=== PATIENT | male | born 1935 | race Caucasian/White ===

== ENCOUNTER → 2016-11-17 | Outpatient (CLI) | payer MEDICARE ==
[~2016-11-17] MED LIST: ASPI1TAB69 PO; BIOT10TA PO; CENTTAB PO; FLAX10006 PO; PRESCAP5 PO; TRAV0.00 EACH EYE; VITA100018 PO
[2016-11-17 08:51] LABS: HEMATOCRIT 39.3 % (39.0-51.0); MEAN CELL VOLUME 90.8 FL (80.0-100.0); MEAN CORPUSCULAR HEMOGLOBIN 30.7 PG (27.0-34.0); MEAN CORPUSCULAR HGB CONC 33.9 % (32.0-36.0); PLATELET COUNT 246 TH/MM3 (150-450); RED BLOOD COUNT 4.32 MIL/MM3 (4.50-5.90); RED CELL DISTRIBUTION WIDTH 13.9 % (11.6-17.2); REVIEW FLAG FINAL; WHITE BLOOD COUNT 7.6 TH/MM3 (4.0-11.0)
[2016-11-17 09:23] LABS: ALKALINE PHOSPHATASE 73 U/L (45-117); ALT (GPT) 32 U/L (12-78); ANION GAP 7 MEQ/L (5-15); AST (GOT) 22 U/L (15-37); BICARBONATE 27.7 MEQ/L (21.0-32.0); BLOOD UREA NITROGEN 15 MG/DL (7-18); CHLORIDE 106 MEQ/L (98-107); GLOMERULAR FILTRATION RATE 65 ML/MIN (>89); GLUCOSE,FASTING 92 MG/DL (74-99); HDL CHOLESTEROL 46.4 MG/DL (40.0-60.0); LDL CHOLESTEROL 74 MG/DL (0-99); POTASSIUM 4.2 MEQ/L (3.5-5.1); SODIUM (NA) 141 MEQ/L (136-145); TOTAL BILIRUBIN ADULT 0.5 MG/DL (0.2-1.0)
== END ==
LOC: CLAB 08:14
PROVIDERS: ATTEND Family Medicine
DX: L93.0 Discoid lupus erythematosus (principal); E78.5 Hyperlipidemia, unspecified; C61 Malignant neoplasm of prostate
CPT/HCPCS: 36415; 80053; 80061; 84443; 85027

== ENCOUNTER 2017-01-16 14:07 | Emergency (ER) | payer MEDICARE ==
[2017-01-16 14:09] VITALS: BP 116/64; PULSE 107; RESP 18; TEMP 97.8; O2SAT 96
--- NOTE | 2017-01-16 14:39 | PD ---
HPI Chief Complaint: Musculoskeletal Complaint Time Seen by Provider: 14:28 Travel History International Travel<30 days: No Contact w/Intl Traveler<30days: No Traveled to known affect area: No History of Present Illness HPI 81 YO M with PMH of sasha Holguin presents to the ED for evaluation of 2 days history of right foot pain. The patient states that he awoke in the middle of the night 2 nights ago with a "terrible" cramp in the right foot. He states that he was able to work the cramp out by standing on the leg. He denies numbness, tingling, weakness, limitations to ROM, or known injury. He treated today with 2 Tylenol with only mild improvement of symptoms. PFSH Past Medical History Hx Anticoagulant Therapy: Yes (ELOQUIS) Cancer: No Cardiovascular Problems: Yes (A-FIB) Diabetes: No Hiatal Hernia: No Hypertension: No Thyroid Disease: No Past Surgical History Eye Surgery: Yes (left eye cataract removed) Genitourinary Surgery: Yes (TURP) Pacemaker: No Social History Alcohol Use: Yes (beer daily) Tobacco Use: No Allergies-Medications (Allergen,Severity, Reaction): Coded Allergies: Latex (Verified Allergy, Unknown, 01/16/17) causes hives Reported Meds & Prescriptions Reported Meds & Active Scripts Active Travatan Z Opth Drops (Travoprost) 0.004 % Soln 1 Drop EACH EYE HS Reported Travatan Z Opth Drops (Travoprost) 0.004 % Soln 1 Drop EACH EYE HS Preservision Areds 2 (Multiple Vitamins W/ Minerals) 1 Cap 1 Cap PO DAILY Centrum Silver (Multiple Vitamins W/ Minerals) 1 Tab 1 Tab PO DAILY Flaxseed Oil (Flaxseed (Linseed)) 1,000 Mg Cap 1,000 Mg PO DAILY Vitamin D3 (Cholecalciferol) 1,000 Unit Tab 1,000 Units PO DAILY Biotin 10 Mg Tab 1,000 Mcg PO DAILY Aspirin 81 Mg Tabdr 81 Mg PO DAILY Review of Systems Except as stated in HPI: all other systems reviewed are Neg Physical Exam Narrative GENERAL: Well-nourished, well-developed elderly white male in NAD. SKIN: Focused skin assessment warm/dry. HEAD: Normocephalic. EYES: No scleral icterus. No injection or drainage. NECK: Supple, trachea midline. No JVD or lymphadenopathy. CARDIOVASCULAR: Regular rate and rhythm without murmurs, gallops, or rubs. RESPIRATORY: Breath sounds equal bilaterally. No accessory muscle use. GASTROINTESTINAL: Abdomen soft, non-tender, nondistended. MUSCULOSKELETAL: No cyanosis, or edema. Hohmann sign negative on the right. Ambulatory with a walker. FOCUSED RIGHT LOWER EXTREMITY EXAM: 2+ DP pulse. Mild TTP of the dorsal aspect of the right forefoot. No limitation to ROM of the toes or ankle. Sensation intact to light touch distally. Cap refill less than 2 seconds. BACK: Nontender without obvious deformity. No CVA tenderness. Data Data Last Documented VS Vital Signs Date Time Temp Pulse Resp B/P Pulse Ox O2 Delivery O2 Flow Rate FiO2 01/16/17 14:09 97.8 107 18 116/64 96 Orders Foot, Complete ([id number]) (01/16/17 14:27) [facility] Medical Decision Making Medical Screen Exam Complete: Yes Emergency Medical Condition: Yes Differential Diagnosis muscle spasm versus muscle strain versus musculoskeletal pain versus retained FB versus fracture versus dislocation versus OA versus other Narrative Course 81 YO M with PMH of sasha Holguin presents to the ED for evaluation of 2 days history of right foot pain. The patient states that he awoke in the middle of the night 2 nights ago with a "terrible" cramp in the right foot. He states that he was able to work the cramp out by standing on the leg. He denies numbness, tingling, weakness, limitations to ROM, or known injury. He treated today with 2 Tylenol with only mild improvement of symptoms. Vitals reviewed. Physical exam reveals an elderly white male in NAD. Hohmann sign negative on the right. Ambulatory with a walker. FOCUSED RIGHT LOWER EXTREMITY EXAM: 2+ DP pulse. Mild TTP of the dorsal aspect of the right forefoot. No limitation to ROM of the toes or ankle. Sensation intact to light touch distally. Cap refill less than 2 seconds. Xray reveals no bony injury. This is musculoskeletal pain. Patient was instructed to rest, ice, elevate the extremity. Pain medications options limited 2/2 Eliquis, narcotics aren't indicated. Patient was instructed to continue with Tylenol as directed on the package, follow with the PCP or a silverware etcher. He indicated understanding of the instructions and is agreeable to the care plan. He is stable and discharged home. Diagnosis Primary Impression: Right foot pain Referrals: [facility] Patient Instructions: General Instructions, Musculoskeletal Pain (ED) Additional Instructions: Rest, ice, elevate the extremity. Apply ice no longer than 10-15 minutes per hour a few times a day. Tylenol as directed on the label, as needed for pain. Return to normal, gentle activity as tolerated. Follow up with silverware etcher or your primary care provider. Return to the ED for any urgent or emergent medical condition. Disposition: 01 DISCHARGE HOME Condition: Stable Soila Rose Jan 16, 2017 14:39
--- NOTE | 2017-01-16 15:24 | RADRPT ---
EXAM DATE/TIME: 01/16/2017 14:48 [place] COMPARISON: No previous studies available for comparison. INDICATIONS : Right foot pain after foot cramps for two days. MEDICAL HISTORY : None. SURGICAL HISTORY : None. ENCOUNTER: Initial ACUITY: 2 days PAIN SCORE: 5/10 LOCATION: Right foot. FINDINGS: There is no acute fracture or dislocation of the right foot. Tiny plantar calcaneal spur is noted. CONCLUSION: 1. No acute fracture or dislocation. 2. Tiny plantar calcaneal spur. Kwame Yu MD on January 16, 2017 at 15:18 Board Certified Radiologist. This report was verified electronically.
== END 2017-01-16 15:40 | disposition home or self-care (01) ==
LOC: NEPD 14:07
DX: M79.671 Pain in right foot (principal); I48.91 Unspecified atrial fibrillation; R25.2 Cramp and spasm; Z79.01 Long term (current) use of anticoagulants
CPT/HCPCS: 73630; 99283

== ENCOUNTER → 2017-01-21 | Outpatient (CLI) | payer MEDICARE ==
[2017-01-21 10:55] LABS: BASOPHIL % 0.6 % (0.0-2.0); EOSINOPHIL # 0.1 TH/MM3 (0-0.4); EOSINOPHIL % 0.7 % (0.0-4.0); HEMATOCRIT 37.4 % (39.0-51.0); HEMO FLAGS DIFF FINAL; LYMPH % 5.8 % (9.0-44.0); LYMPHOCYTE # 0.5 TH/MM3 (1.0-4.8); MEAN CELL VOLUME 89.8 FL (80.0-100.0); MEAN CORPUSCULAR HEMOGLOBIN 30.3 PG (27.0-34.0); MEAN CORPUSCULAR HGB CONC 33.7 % (32.0-36.0); MONO % 9.6 % (0.0-8.0); NEUT % 83.3 % (16.0-70.0); PLATELET COUNT 267 TH/MM3 (150-450); RED BLOOD COUNT 4.17 MIL/MM3 (4.50-5.90); RED CELL DISTRIBUTION WIDTH 14.1 % (11.6-17.2); WHITE BLOOD COUNT 8.4 TH/MM3 (4.0-11.0)
[2017-01-21 11:22] LABS: WESTERGREN SEDIMENTATION RATE 70 mm/hr (0-20)
== END ==
LOC: CLAB 10:22
DX: M10.9 Gout, unspecified (principal); L03.031 Cellulitis of right toe
CPT/HCPCS: 36415; 84550; 85025; 85652

== ENCOUNTER → 2017-01-26 | Outpatient (CLI) | payer MEDICARE ==
[2017-01-26 14:59] LABS: INDIRECT BILIRUBIN 0.4 MG/DL (0.0-0.8); TOTAL BILIRUBIN ADULT 0.6 MG/DL (0.2-1.0)
== END ==
LOC: CLAB 13:28
PROVIDERS: ATTEND Family Medicine
DX: R79.89 Other specified abnormal findings of blood chemistry (principal); R94.5 Abnormal results of liver function studies
CPT/HCPCS: 36415; 80074; 80076

== ENCOUNTER 2017-02-04 09:22 | Observation (INO) | payer MEDICARE ==
[~2017-02-04] VITALS: Ht 160 cm; Wt 66.0 kg
[2017-02-04] VITALS (9 sets, daily range): BP systolic 101–129; BP diastolic 55–96; PULSE 67–108; RESP 16–20; TEMP 97.4–98.7; O2SAT 90–99
[2017-02-04] MEDS ORDERED: SODIUM CHLOR 0.9% 1000 ML INJ 1,000 ML IV ONE ×3 (09:54→13:30)
[2017-02-04] MEDS ORDERED: OCUVTAB4 PO (10:00)
[2017-02-04] MEDS ORDERED: COLC1TAB15 PO (10:00)
[2017-02-04] MEDS ORDERED: FLAX1000 PO (10:00)
[2017-02-04] MEDS ORDERED: SODIUM CHLORIDE 0.9% FLUSH 10 ML FLUSH IVF PRN (10:00)
[2017-02-04] MEDS ORDERED: METO50TA11 PO (10:00)
[2017-02-04] MEDS ORDERED: APIX5TAB PO (10:00)
[2017-02-04] MEDS ORDERED: CENTCHW4 CHEW (10:00)
--- NOTE | 2017-02-04 10:06 | PD ---
HPI . Diarrhea Chief Complaint: GI Complaint Time Seen by Provider: 09:37 Travel History International Travel<30 days: No Contact w/Intl Traveler<30days: No Traveled to known affect area: No History of Present Illness HPI This patient presents along with his with the chief complaint of nausea, vomiting and diarrhea. He reports the onset of his symptoms 3 days ago with diarrhea. He reports too numerous to count episodes of diarrhea that day. He treated it with 2 doses of Imodium. He states that he subsequently had some emesis. The symptoms continued into the next day. However, the next 2 days were okay. Then his symptoms recurred this morning. He called his doctor who instructed him to come to the emergency department for further evaluation and treatment. Patient reports markedly decreased energy and possible fevers. Denies any pain. No other associated symptoms. His symptoms were not relieved by Imodium and he knows of no exacerbating factor. PFSH Past Medical History Hx Anticoagulant Therapy: Yes (Eliquis) Cancer: Yes (prostate ) Cardiovascular Problems: Yes (on Eliquis, A.fib) Chemotherapy: Yes (Radiation with prostate cancer ) Diabetes: No Hiatal Hernia: No Hypertension: Yes Medical other: Yes (lupus ) Thyroid Disease: No ?: Not Past Surgical History Eye Surgery: Yes (both eye cataract removed) Genitourinary Surgery: Yes (TURP) Pacemaker: No Other Surgery: Yes Social History Alcohol Use: Yes (occassionaly ) Tobacco Use: No Substance Use: No Allergies-Medications (Allergen,Severity, Reaction): Coded Allergies: Latex (Verified Allergy, Unknown, 02/04/17) causes hives Reported Meds & Prescriptions Reported Meds & Active Scripts Active Reported Preservision Areds (Multiple Vitamins W/ Minerals) 1 Tab 1 Tab PO DAILY Centrum (Multiple Vitamins W/ Minerals) 1 Chew 1 Tab CHEW DAILY Flaxseed Oil (Flaxseed (Linseed)) 1,000 Mg Cap 1 Cap PO DAILY Colchicine 0.6 Mg Tab 0.6 Mg PO TID Eliquis (Apixaban) 5 Mg Tab 5 Mg PO BID Metoprolol Succinate ER 24 HR (Metoprolol Succinate) 50 Mg Tab 50 Mg PO DAILY Travatan Z Opth Drops (Travoprost) 0.004 % Soln 1 Drop EACH EYE HS Vitamin D3 (Cholecalciferol) 1,000 Unit Tab 1,000 Units PO DAILY Biotin 10 Mg Tab 1,000 Mcg PO DAILY Review of Systems Except as stated in HPI: all other systems reviewed are Neg General / Constitutional: Positive: Fever, Chills Gastrointestinal: Positive: Nausea, Vomiting, Diarrhea, No: Abdominal Pain Genitourinary: No: Urgency, Frequency, Dysuria Physical Exam Narrative Vital Signs Date Time Temp Pulse Resp B/P Pulse Ox O2 Delivery O2 Flow Rate FiO2 02/04/17 09:41 99 20 110/68 99 02/04/17 09:32 98.7 67 16 103/55 95 Room Air 02/04/17 09:25 97.4 87 20 101/64 98 Room Air GENERAL: Elderly man in no acute distress. SKIN: Warm and dry. HEAD: Atraumatic. Normocephalic. EYES: Pupils equal and round. Extraocular movements are intact. ENT: No nasal bleeding or discharge. Mucous membranes pink and moist. NECK: Trachea midline. Neck is supple. CARDIOVASCULAR: Regular rate and rhythm. Heart sounds are normal. RESPIRATORY: No accessory muscle use. Lungs are clear with full air movement throughout. GASTROINTESTINAL: Abdomen soft, non-tender, nondistended. MUSCULOSKELETAL: No obvious deformities. No edema. NEUROLOGICAL: Awake and alert. No obvious cranial nerve deficits. Motor grossly within normal limits. Normal speech. PSYCHIATRIC: Appropriate mood and affect; insight and judgment normal. Data Data Last Documented VS Vital Signs Date Time Temp Pulse Resp B/P Pulse Ox O2 Delivery O2 Flow Rate FiO2 02/04/17 11:58 102 20 124/63 99 Room Air 02/04/17 09:32 98.7 Orders Complete Blood Count With Diff (02/04/17 09:54) Comprehensive Metabolic Panel (02/04/17 09:54) Urinalysis - C+S If Indicated (02/04/17 09:54) Iv Access Insert/Monitor (02/04/17 09:54) Sodium Chlor 0.9% 1000 Ml Inj (Ns 1000 M (02/04/17 09:54) Sodium Chloride 0.9% Flush (Ns Flush) (02/04/17 10:00) Blood Culture (02/04/17 09:54) C Diff Toxin Pcr (02/04/17 09:54) Enteric Path (Stool) (02/04/17 09:54) Sodium Chlor 0.9% 1000 Ml Inj (Ns 1000 M (02/04/17 11:30) Sodium Chlor 0.9% 1000 Ml Inj (Ns 1000 M (02/04/17 13:30) Labs Laboratory Tests Test 02/04/17 02/04/17 10:00 13:10 White Blood Count 8.7 TH/MM3 Red Blood Count 4.25 MIL/MM3 Hemoglobin 12.9 GM/DL Hematocrit 37.5 % Mean Corpuscular Volume 88.2 FL Mean Corpuscular Hemoglobin 30.3 PG Mean Corpuscular Hemoglobin 34.4 % Concent Red Cell Distribution Width 13.7 % Platelet Count 415 TH/MM3 Mean Platelet Volume 7.4 FL Neutrophils (%) (Auto) 84.7 % Lymphocytes (%) (Auto) 4.8 % Monocytes (%) (Auto) 9.0 % Eosinophils (%) (Auto) 1.2 % Basophils (%) (Auto) 0.3 % Neutrophils # (Auto) 7.4 TH/MM3 Lymphocytes # (Auto) 0.4 TH/MM3 Monocytes # (Auto) 0.8 TH/MM3 Eosinophils # (Auto) 0.1 TH/MM3 Basophils # (Auto) 0.0 TH/MM3 CBC Comment DIFF FINAL Differential Comment Sodium Level 135 MEQ/L Potassium Level 4.0 MEQ/L Chloride Level 103 MEQ/L Carbon Dioxide Level 20.2 MEQ/L Anion Gap 12 MEQ/L Blood Urea Nitrogen 21 MG/DL Creatinine 1.10 MG/DL Estimat Glomerular Filtration 64 ML/MIN Rate Random Glucose 91 MG/DL Calcium Level 9.1 MG/DL Total Bilirubin 0.7 MG/DL Aspartate Amino Transf 45 U/L (AST/SGOT) Alanine Aminotransferase 43 U/L (ALT/SGPT) Alkaline Phosphatase 88 U/L Total Protein 7.4 GM/DL Albumin 2.8 GM/DL Urine Color YELLOW Urine Turbidity CLEAR Urine pH 5.5 Urine Specific [place] 1.008 Urine Protein NEG mg/dL Urine Glucose (UA) NEG mg/dL Urine Ketones NEG mg/dL Urine Occult Blood NEG Urine Nitrite NEG Urine Bilirubin NEG Urine Urobilinogen LESS THAN 2.0 MG/DL Urine Leukocyte Esterase NEG Urine WBC LESS THAN 1 /hpf Urine Hyaline Casts 3 /lpf Urine Mucus FEW /lpf Microscopic Urinalysis Comment CULT NOT INDICATED MDM Medical Decision Making Medical Screen Exam Complete: Yes Emergency Medical Condition: Yes Differential Diagnosis Differential diagnosis of diarrhea includes but is not limited to early enteritis, bacterial enteritis, antibiotic induced diarrhea, irritable bowel syndrome Narrative Course This is an elderly patient who presents with mainly diarrhea with some vomiting. His blood pressure is low for him. He will be fluid resuscitated. I have ordered stool for enteric pathogens and C. difficile. Basic labs are pending. CBC & BMP Diagram 02/04/17 10:00 UA neg for infection. Patient reports that he still feels very weak following 2 L of fluid. He has put out very little urine. He will be admitted to observation for hydration. Diagnosis Primary Impression: Diarrhea Qualified Code: R19.7 - Diarrhea, unspecified type Admitting Information Admitting Physician Requests: Observation Patient Instructions: Acute Diarrhea (ED), General Instructions Condition: Stable Gabriela Camara MD Feb 04, 2017 10:06
[2017-02-04 10:30] LABS: AUTOMATED NEUTROPHIL # 7.4 TH/MM3 (1.8-7.7); BASOPHIL % 0.3 % (0.0-2.0); EOSINOPHIL # 0.1 TH/MM3 (0-0.4); EOSINOPHIL % 1.2 % (0.0-4.0); HEMATOCRIT 37.5 % (39.0-51.0); HEMO FLAGS DIFF FINAL; LYMPH % 4.8 % (9.0-44.0); LYMPHOCYTE # 0.4 TH/MM3 (1.0-4.8); MEAN CELL VOLUME 88.2 FL (80.0-100.0); MEAN CORPUSCULAR HEMOGLOBIN 30.3 PG (27.0-34.0); MEAN CORPUSCULAR HGB CONC 34.4 % (32.0-36.0); NEUT % 84.7 % (16.0-70.0); PLATELET COUNT 415 TH/MM3 (150-450); RED BLOOD COUNT 4.25 MIL/MM3 (4.50-5.90); RED CELL DISTRIBUTION WIDTH 13.7 % (11.6-17.2); WHITE BLOOD COUNT 8.7 TH/MM3 (4.0-11.0)
[2017-02-04 10:45] LABS: BLOOD UREA NITROGEN 21 MG/DL (7-18); GLOMERULAR FILTRATION RATE 64 ML/MIN (>89)
[2017-02-04 10:46] LABS: ALT (GPT) 43 U/L (12-78); ANION GAP 12 MEQ/L (5-15); AST (GOT) 45 U/L (15-37); BICARBONATE 20.2 MEQ/L (21.0-32.0); CHLORIDE 103 MEQ/L (98-107); SODIUM (NA) 135 MEQ/L (136-145)
[2017-02-04 10:49] LABS: ALKALINE PHOSPHATASE 88 U/L (45-117); TOTAL BILIRUBIN ADULT 0.7 MG/DL (0.2-1.0)
[2017-02-04 13:46] LABS: BLOOD, URINE NEG (NEG); GLUCOSE,URINE NEG (NEG); HYALINE CAST, URINE 3 /lpf (RARE); KETONE, URINE NEG (NEG); MUCUS URINE FEW /lpf (OCC); NITRITE,URINE NEG (NEG); PH, URINE 5.5 (5.0-8.5); URINE COLOR YELLOW (YELLW/STRAW)
[2017-02-04 13:49] LABS: COMMENT (UR) CULT NOT INDICATED; CULTURE IF INDICATED CULT NOT INDICATED
[2017-02-04] MEDS ORDERED: BISACODYL 10 MG SUPP RECTAL PRN (14:15)
[2017-02-04] MEDS ORDERED: SENNOSIDES 8.6 MG TAB PO PRN (14:15)
[2017-02-04] MEDS ORDERED: NALOXONE HCL 0.4 MG/ML AMP IV PRN (14:15)
[2017-02-04] MEDS ORDERED: METOPROLOL TARTRATE 50 MG TAB PO ONE (14:15)
[2017-02-04] MEDS ORDERED: TEMAZEPAM 15 MG CAP PO PRN (14:15)
[2017-02-04] MEDS ORDERED: MAGNESIUM HYDROXIDE SUSP 30 ML CUP PO PRN (14:15)
[2017-02-04] MEDS ORDERED: ONDANSETRON HCL 4 MG/2 ML VIAL IVP PRN (14:15)
[2017-02-04] MEDS ORDERED: SODIUM CHLORIDE 0.9% FLUSH 10 ML FLUSH IV FLUSH PRN (14:15)
[2017-02-04] MEDS ORDERED: LACTULOSE SYRUP 20 GM/30 ML CUP PO PRN (14:15)
--- NOTE | 2017-02-04 14:30 | HHI.HP ---
HPI Service [facility] Primary Care Physician Jacqueline Cortez MD Admission Diagnosis diarrhea, weakness Diagnoses: Chief Complaint: Diarrhea, weakness Travel History International Travel<30 Days: No Contact w/Intl Traveler <30 Da: No Traveled to Known Affected Are: No Sepsis Criteria SIRS Criteria (2 or more): Heart rate over 90 History of Present Illness Written by Rd Giordano, acting as scribe for Dr. Cassidy on 02/04/17 at 14:19. 81-year-old male with past medical history of A. fib, gout, prostate cancer s/p xrt, lupus in remission who presented with diarrhea and weakness. The patient states that for the past 5 days he's been having green liquid stools. He denies any unusual food, states Thursday and Thursday he ate with his entire family and no in house got sick. He states that Thursday and Thursday he was having vomiting, but that resolved. He has has decreased appetite, but tolerated full diet all day yesterday. He states the diarrhea was improving yesterday, but got acutely worse again today. He states he had night sweats 2 nights ago, otherwise no fever or chills. He denies any abdominal pain. He does state that he was on antibiotics one month ago for right foot gout. He has been using a walker for ambulation due to foot pain from the gout, although his foot is improving. The patient does state that his had 3 loose bowel movements today for the first time. Review of Systems Except as stated in HPI: all other systems reviewed are Neg Past Family Social History Past Medical History Atrial fibrillation Gout Prostate cancer status post radiation in 2011 Lupus, not systemic, in remission Past Surgical History Cataract surgery bilaterally TURP Reported Medications Preservision Areds (Multiple Vitamins W/ Minerals) 1 Tab 1 Tab PO DAILY Centrum (Multiple Vitamins W/ Minerals) 1 Chew 1 Tab CHEW DAILY Flaxseed Oil (Flaxseed (Linseed)) 1,000 Mg Cap 1 Cap PO DAILY Colchicine 0.6 Mg Tab 0.6 Mg PO TID Eliquis (Apixaban) 5 Mg Tab 5 Mg PO BID Metoprolol Succinate ER 24 HR (Metoprolol Succinate) 50 Mg Tab 50 Mg PO DAILY Travatan Z Opth Drops (Travoprost) 0.004 % Soln 1 Drop EACH EYE HS Vitamin D3 (Cholecalciferol) 1,000 Unit Tab 1,000 Units PO DAILY Biotin 10 Mg Tab 1,000 Mcg PO DAILY Allergies: Coded Allergies: Latex (Verified Allergy, Unknown, 02/04/17) causes hives Active Ordered Medications Current Medications Medications (Trade) Dose Ordered Sig/Frances Route Start Time Stop Time Status Last Admin Sodium Chloride 2 ml 2 ml UNSCH PRN IVF 02/04/17 10:00 (NS 1000 ml Inj) 1,000 ml @ 999 mls/hr BOLUS ONCE IV 02/04/17 13:30 02/04/17 14:30 02/04/17 13:24 (Eliquis) 5 mg BID PO 02/04/17 21:00 UNV (Vitamin D3) 1,000 units DAILY PO 02/05/17 09:00 UNV (Colchicine) 0.6 mg TID PO 02/04/17 18:00 UNV (Toprol Xl) 50 mg DAILY PO 02/05/17 09:00 UNV (Theragran M Tab) 1 tab DAILY PO 02/05/17 09:00 UNV Non-Formulary Medication 1,000 mcg DAILY PO 02/05/17 09:00 UNV Non-Formulary Medication 1 cap DAILY PO 02/05/17 09:00 UNV Non-Formulary Medication 1 tab DAILY PO 02/05/17 09:00 UNV Non-Formulary Medication 1 drop 1 drop HS EACH EYE 02/04/17 21:00 UNV (1/2 NS 1000 ml Inj) 1,000 ml @ 75 mls/hr [id number] IV 02/04/17 14:02 UNV (NS Flush) 2 ml UNSCH PRN IV FLUSH 02/04/17 14:15 UNV (NS Flush) 2 ml BID IV FLUSH 02/04/17 21:00 UNV (Zofran Inj) 4 mg Q6H PRN IVP 02/04/17 14:15 UNV (Restoril) 15 mg HS PRN PO 02/04/17 14:15 UNV (Narcan Inj) 0.4 mg UNSCH PRN IV 02/04/17 14:15 UNV (Luzma-Colace) 1 tab BID PO 02/04/17 21:00 UNV (Milk Of Magnesia Liq) 30 ml Q12H PRN PO 02/04/17 14:15 UNV (Senokot) 17.2 mg Q12H PRN PO 02/04/17 14:15 UNV (Dulcolax Supp) 10 mg DAILY PRN RECTAL 02/04/17 14:15 UNV (Lactulose Liq) 30 ml DAILY PRN PO 02/04/17 14:15 UNV Family History Mother had lupus and rheumatoid arthritis Social History Has 1 or 2 alcoholic beverages per week Denies any tobacco use Lives at home with his Physical Exam Vital Signs Vital Signs Date Time Temp Pulse Resp B/P Pulse Ox O2 Delivery O2 Flow Rate FiO2 02/04/17 11:58 102 20 124/63 99 Room Air 02/04/17 09:41 99 20 110/68 99 02/04/17 09:32 98.7 67 16 103/55 95 Room Air 02/04/17 09:25 97.4 87 20 101/64 98 Room Air Physical Exam GENERAL: Well-developed well-nourished. In no acute distress. SKIN: Warm and dry. No lesions noted. HEENT: Normocephalic. Pupils equal and round. Mucous membranes pink and moist. CARDIOVASCULAR: Irregular rate and rhythm. No murmur appreciated. RESPIRATORY: No accessory muscle use. Clear to auscultation. Breath sounds equal bilaterally. GASTROINTESTINAL: Abdomen soft, non-tender, nondistended. Bowel sounds hyperactive. MUSCULOSKELETAL: Right foot and ankle wrapped with an Ba bandage, no lesions noted. No clubbing or cyanosis. No edema. NEUROLOGICAL: Awake and alert. No focal neurological deficits. Moves upper and lower extremities spontaneously. Normal speech. PSYCHIATRIC: Appropriate mood and affect; insight and judgment normal. Laboratory Laboratory Tests Test 02/04/17 02/04/17 10:00 13:10 White Blood Count 8.7 Red Blood Count 4.25 Hemoglobin 12.9 Hematocrit 37.5 Mean Corpuscular Volume 88.2 Mean Corpuscular Hemoglobin 30.3 Mean Corpuscular Hemoglobin 34.4 Concent Red Cell Distribution Width 13.7 Platelet Count 415 Mean Platelet Volume 7.4 Neutrophils (%) (Auto) 84.7 Lymphocytes (%) (Auto) 4.8 Monocytes (%) (Auto) 9.0 Eosinophils (%) (Auto) 1.2 Basophils (%) (Auto) 0.3 Neutrophils # (Auto) 7.4 Lymphocytes # (Auto) 0.4 Monocytes # (Auto) 0.8 Eosinophils # (Auto) 0.1 Basophils # (Auto) 0.0 CBC Comment DIFF FINAL Differential Comment Sodium Level 135 Potassium Level 4.0 Chloride Level 103 Carbon Dioxide Level 20.2 Anion Gap 12 Blood Urea Nitrogen 21 Creatinine 1.10 Estimat Glomerular Filtration 64 Rate Random Glucose 91 Calcium Level 9.1 Total Bilirubin 0.7 Aspartate Amino Transf 45 (AST/SGOT) Alanine Aminotransferase 43 (ALT/SGPT) Alkaline Phosphatase 88 Total Protein 7.4 Albumin 2.8 Urine Color YELLOW Urine Turbidity CLEAR Urine pH 5.5 Urine Specific [place] 1.008 Urine Protein NEG Urine Glucose (UA) NEG Urine Ketones NEG Urine Occult Blood NEG Urine Nitrite NEG Urine Bilirubin NEG Urine Urobilinogen LESS THAN 2.0 Urine Leukocyte Esterase NEG Urine WBC LESS THAN 1 Urine Hyaline Casts 3 Urine Mucus FEW Microscopic Urinalysis Comment CULT NOT INDICATED Date/Time Procedure Status Source Growth 02/04/17 10:00 Aerobic Blood Culture Received Blood Peripheral Pending 02/04/17 10:00 Anaerobic Blood Culture Received Blood Peripheral Pending Result Diagram: 02/04/17 1000 02/04/17 1000 Assessment and Plan Assessment and Plan 81-year-old male with past medical history of A. fib, gout, prostate cancer s/p xrt, lupus in remission who presented with diarrhea and weakness Gastroenteritis: Nausea, vomiting, diarrhea. Nausea and vomiting have artery improved, however the patient had acute worsening of diarrhea today. Afebrile with no leukocytosis. Possible mild dehydration on labs and exam. IVF. Check stool studies including C. difficile with recent antibiotic use. Acute weakness: Likely secondary to infection as above as well as right foot pain from recent gout flare. PT eval. Atrial fibrillation: Rate is currently elevated, likely due to dehydration. Given metoprolol 1 now. Resume home extended release metoprolol. Continue Eliquis. Gout: No signs of acute flareup on exam. Continue home colchicine. DVT prophylaxis: On Eliquis. This note was transcribed by ayo [Rd Giordano]. I, Dr. Ayah Cassidy personally performed the history, physical exam, and medical decision making; and confirmed the accuracy of the information in the transcribed note. Authenticated by Dr. Ayah Cassidy on 02/04/17 at 1425. Discussed Condition With Patient, ED staff Rd Giordano Feb 04, 2017 14:30 Ayah Cassidy MD Feb 04, 2017 15:42
[2017-02-04] MEDS: SODIUM CHLOR 0.45% 1000 ML INJ 1,000 ML IV SCH (16:29)
[2017-02-04 17:22] LABS: C. DIFF EPI 027 PRESUMPTIVE NEGATIVE (NEGATIVE); C. DIFF TOXIN PCR NEGATIVE (NEGATIVE)
[2017-02-04] MEDS: COLCHICINE 0.6 MG TAB PO SCH (18:00)
[2017-02-04] MEDS ORDERED: DOCUSATE SODIUM 50 MG/SENNA 8.6 MG TAB PO SCH (21:00)
[2017-02-04] MEDS: SODIUM CHLORIDE 0.9% FLUSH 10 ML FLUSH IV FLUSH SCH (21:00)
[2017-02-04] MEDS: LATANOPROST 0.005% OPHT SOLN 2.5 ML BTL EACH EYE SCH (22:15)
[2017-02-04] MEDS: APIXABAN 5 MG TABLET PO SCH (22:16)
[2017-02-05] VITALS (8 sets, daily range): BP systolic 110–124; BP diastolic 64–79; PULSE 75–118; RESP 18–20; TEMP 97.5–98.6; O2SAT 92–95
[2017-02-05 07:34] LABS: BICARBONATE 20.3 MEQ/L (21.0-32.0); POTASSIUM 3.9 MEQ/L (3.5-5.1)
[2017-02-05] MEDS: SODIUM CHLORIDE 0.9% FLUSH 10 ML FLUSH IV FLUSH SCH ×2 (09:00→20:13)
[2017-02-05] MEDS ORDERED: BIOTIN 1000 MCG PO SCH (09:00)
[2017-02-05] MEDS ORDERED: FLAXSEED PO SCH (09:00)
[2017-02-05] MEDS ORDERED: METOPROLOL SUCCINATE 50 MG EXTENDED RELEASE TAB PO SCH (09:00)
[2017-02-05] MEDS: MULTIVITAMINS/MINERALS THERAPEUTIC TAB PO SCH (09:10)
[2017-02-05] MEDS: SODIUM CHLOR 0.45% 1000 ML INJ 1,000 ML IV SCH ×2 (09:11→16:42)
[2017-02-05] MEDS: METOPROLOL TARTRATE 25 MG TAB PO SCH ×2 (09:11→20:24)
[2017-02-05] MEDS: APIXABAN 5 MG TABLET PO SCH ×2 (09:11→20:24)
--- NOTE | 2017-02-05 10:02 | HHI.PR ---
Subjective Remarks Follow-up for intractable diarrhea. The patient states he's been having essentially constant liquid stool since admission. He states he is on his second diaper since midnight. He continues to complain of feeling weak and debilitated. He denies any chest pain or shortness of breath. He has been tolerating oral intake with no vomiting. He has not yet walked with PT yet. Objective Vitals Vital Signs Date Time Temp Pulse Resp B/P Pulse Ox O2 Delivery O2 Flow Rate FiO2 02/05/17 08:54 97.6 118 18 124/79 95 02/05/17 03:36 97.5 112 18 120/74 94 02/04/17 23:58 98.1 108 18 118/68 90 02/04/17 19:24 97.6 102 18 106/69 97 02/04/17 17:08 97.4 84 20 129/96 96 02/04/17 16:30 105 20 123/78 98 02/04/17 15:06 102 17 116/74 97 Room Air 02/04/17 11:58 102 20 124/63 99 Room Air I/O 02/04/17 02/04/17 02/04/17 02/05/17 02/05/17 02/05/17 07:00 15:00 23:00 07:00 15:00 23:00 Intake Total 2000 ml Output Total 300 ml 1960 ml Balance 1700 ml -1960 ml Intake IV Total 2000 ml Output Urine Total 300 ml 1560 ml Stool Total 400 ml # Voids 1 Result Diagram: 02/04/17 1000 02/05/17 0649 Objective Remarks GENERAL: Well-developed well-nourished. In no acute distress. SKIN: Warm and dry. No lesions noted. HEENT: Normocephalic. Pupils equal and round. Mucous membranes pink and moist. CARDIOVASCULAR: Irregular rate and rhythm. No murmur appreciated. RESPIRATORY: No accessory muscle use. Clear to auscultation. Breath sounds equal bilaterally. GASTROINTESTINAL: Abdomen soft, non-tender, nondistended. Bowel sounds x4. MUSCULOSKELETAL: No obvious deformities. No clubbing or cyanosis. No edema. NEUROLOGICAL: Awake and alert. No focal neurological deficits. Moves upper and lower extremities spontaneously. Normal speech. PSYCHIATRIC: Appropriate mood and affect; insight and judgment normal. A/P Assessment and Plan 81-year-old male with past medical history of A. fib, gout, prostate cancer s/p xrt, lupus in remission who presented with diarrhea and weakness Gastroenteritis: Nausea, vomiting, diarrhea. Nausea and vomiting have artery improved, however the patient continues with intractable liquid stools. Afebrile with no leukocytosis. C. difficile negative, add antidiarrheals; Lomotil 1, Imodium prn, Lactinex. Further stool studies pending. Dehydration: Creatinine 1.1, increased to 0.84 with IVF. Bicarbonate is still mildly decreased. Continue IVF. Monitor BMP. Acute weakness: Likely secondary to infection as above as well as right foot pain from recent gout flare. PT eval. Atrial fibrillation: Rate is currently elevated, likely due to dehydration. Increase metoprolol to 75 mg. Continue Eliquis. Monitor on telemetry. Gout: No signs of acute flareup on exam. Continue home colchicine. DVT prophylaxis: On Eliquis. Discharge Planning No improvement in symptoms overnight. Continue to clinically monitor. 1445 patient reassessed. He reports continued profuse liquid stools despite Lomotil, asking for Imodium. Stool studies negative, likely viral. Patient cleared from PT perspective. Discussed plan with the patient, hopefully discharge tomorrow if diarrhea starts improved. Schedule Lomotil. Rd Giordano Feb 05, 2017 10:02
[2017-02-05] MEDS: MULTIVITAMIN-OPHTHALMIC 1 TAB PO SCH (11:12)
[2017-02-05] MEDS: CHOLECALCIFEROL (VIT D3) 1000 UNIT TAB PO SCH (11:13)
[2017-02-05] MEDS: COLCHICINE 0.6 MG TAB PO SCH ×3 (11:13→16:30)
[2017-02-05] MEDS ORDERED: DIPHENOXYLATE/ATROPINE 2.5 MG/0.025 MG TAB PO ONE (11:15)
[2017-02-05] MEDS: LACTOBACILLUS ACIDOPHILUS TAB PO SCH ×2 (13:23→16:29)
[2017-02-05] MEDS: LOPERAMIDE HCL 2 MG CAP PO PRN ×2 (15:05→20:24)
[2017-02-05] MEDS ORDERED: CHOLESTYRAMINE 4 GM PACKET PO ONE (15:15)
[2017-02-05] MEDS: LATANOPROST 0.005% OPHT SOLN 2.5 ML BTL EACH EYE SCH (20:24)
[2017-02-05] MEDS: DIPHENOXYLATE/ATROPINE 2.5 MG/0.025 MG TAB PO SCH (22:00)
[2017-02-06 03:56] VITALS: BP 109/66; PULSE 100; RESP 18; TEMP 97.8; O2SAT 96
[2017-02-06] MEDS: DIPHENOXYLATE/ATROPINE 2.5 MG/0.025 MG TAB PO SCH ×2 (06:00→08:58)
[2017-02-06] MEDS: SODIUM CHLOR 0.45% 1000 ML INJ 1,000 ML IV SCH (06:02)
[2017-02-06 07:14] LABS: AUTOMATED NEUTROPHIL # 6.7 TH/MM3 (1.8-7.7); BASOPHIL % 0.4 % (0.0-2.0); EOSINOPHIL # 0.2 TH/MM3 (0-0.4); HEMATOCRIT 36.4 % (39.0-51.0); HEMO FLAGS DIFF FINAL; LYMPH % 5.6 % (9.0-44.0); LYMPHOCYTE # 0.5 TH/MM3 (1.0-4.8); MEAN CELL VOLUME 88.2 FL (80.0-100.0); MEAN CORPUSCULAR HEMOGLOBIN 29.5 PG (27.0-34.0); MEAN CORPUSCULAR HGB CONC 33.4 % (32.0-36.0); MONO % 10.2 % (0.0-8.0); NEUT % 81.8 % (16.0-70.0); PLATELET COUNT 322 TH/MM3 (150-450); RED BLOOD COUNT 4.13 MIL/MM3 (4.50-5.90); RED CELL DISTRIBUTION WIDTH 13.8 % (11.6-17.2); WHITE BLOOD COUNT 8.2 TH/MM3 (4.0-11.0)
[2017-02-06 07:19] LABS: BICARBONATE 27.4 MEQ/L (21.0-32.0); POTASSIUM 4.2 MEQ/L (3.5-5.1)
[2017-02-06 07:55] VITALS: BP 104/59; PULSE 105; RESP 18; TEMP 97.8; O2SAT 95
[2017-02-06 08:00] VITALS: PULSE 119
--- NOTE | 2017-02-06 08:25 | HHI.PR ---
Subjective Remarks Follow up for intractable diarrhea. The patient believes he is improving however still had episodes of diarrhea overnight. He feels his diarrhea is becoming slightly more formed. Denies abdominal pain/nausea/vomiting. He is looking forward to breakfast. He was able to get some sleep last night and does not feel as weak today compared to yesterday. He is hoping to go home today. Objective Vitals Vital Signs Date Time Temp Pulse Resp B/P Pulse Ox O2 Delivery O2 Flow Rate FiO2 02/06/17 07:55 97.8 105 18 104/59 95 02/06/17 03:56 97.8 100 18 109/66 96 02/05/17 23:49 98.6 93 18 112/69 94 02/05/17 20:36 97.8 114 18 110/64 95 02/05/17 17:54 75 02/05/17 17:44 97.9 103 20 116/73 92 02/05/17 12:58 97.9 90 20 111/69 92 02/05/17 10:37 85 02/05/17 08:54 97.6 118 18 124/79 95 Result Diagram: 02/06/1762502/06/17625 Objective Remarks GENERAL: Well-nourished, well-developed elderly male patient in [facility]. SKIN: Warm and dry. No rash. HEENT: Normocephalic. Atraumatic. Pupils equal and round. Mucous membranes pink and moist. NECK: Supple. Trachea midline. CARDIOVASCULAR: Regular rate and rhythm. S1, S2 noted. No murmur appreciated. RESPIRATORY: No accessory muscle use. Clear to auscultation. Breath sounds equal bilaterally. GASTROINTESTINAL: Abdomen soft, non-tender, nondistended. Normoactive bowel sounds x4. MUSCULOSKELETAL: No obvious deformities. Extremities without clubbing, cyanosis , or edema. NEUROLOGICAL: Awake and alert. No obvious cranial nerve deficits. Motor grossly within normal limits. Normal speech. PSYCHIATRIC: Appropriate mood and affect; insight and judgment normal. Medications and IVs Current Medications Medications (Trade) Dose Ordered Sig/Frances Route Start Time Stop Time Status Last Admin (Eliquis) 5 mg BID PO 02/04/17 21:00 02/06/17 08:58 (Vitamin D3) 1,000 units DAILY PO 02/05/17 09:00 02/06/17 08:58 (Colchicine) 0.6 mg TID PO 02/04/17 18:00 02/06/17 08:58 (Theragran M Tab) 1 tab DAILY PO 02/05/17 09:00 02/06/17 08:58 (Ocuvite) 1 tab DAILY PO 02/05/17 09:00 02/06/17 08:57 Latanoprost 1 drop 1 drop HS EACH EYE 02/04/17 21:00 02/05/17 20:24 (1/2 NS 1000 ml Inj) 1,000 ml @ 75 mls/hr [id number] IV 02/04/17 14:02 02/06/17 06:02 (NS Flush) 2 ml UNSCH PRN IV FLUSH 02/04/17 14:15 (NS Flush) 2 ml BID IV FLUSH 02/04/17 21:00 02/06/17 08:58 (Zofran Inj) 4 mg Q6H PRN IVP 02/04/17 14:15 02/05/17 13:23 (Restoril) 15 mg HS PRN PO 02/04/17 14:15 (Narcan Inj) 0.4 mg UNSCH PRN IV 02/04/17 14:15 (Milk Of Magnesia Liq) 30 ml Q12H PRN PO 02/04/17 14:15 (Senokot) 17.2 mg Q12H PRN PO 02/04/17 14:15 (Dulcolax Supp) 10 mg DAILY PRN RECTAL 02/04/17 14:15 (Lactulose Liq) 30 ml DAILY PRN PO 02/04/17 14:15 (Lopressor) 75 mg Q12HR PO 02/05/17 09:00 02/05/17 20:24 (Imodium) 2 mg UNSCH PRN PO 02/05/17 10:00 02/05/17 20:24 (Lactinex) 1 tab TID PO 02/05/17 13:00 02/06/17 08:58 (Lomotil Tab) 1 tab Q8HR PO 02/05/17 22:00 02/06/17 08:58 A/P Assessment and Plan 81-year-old male with past medical history of A. fib, gout, prostate cancer s/p xrt, lupus in remission who presented with diarrhea and weakness Gastroenteritis: presented with 5 days of intractable nausea/vomiting/diarrhea. N/V resolved, however the patient continues with intractable liquid stools. Afebrile, no leukocytosis. C. difficile and stool studies negative. Added antidiarrheals with Lomotil q8h scheduled, Imodium prn, Lactinex. Symptoms improving. Dehydration: Creatinine 1.1, improved to 0.84 with IVF. Bicarbonate improved. Continue IVF. Monitor BMP. Acute weakness: Likely secondary to infection as above as well as right foot pain from recent gout flare. PT evaluated, no PT needed after discharge. Atrial fibrillation: Rate is currently elevated, likely due to dehydration. Increased metoprolol to 75 mg. Continue Eliquis. Monitor on telemetry. Gout: No signs of acute flareup on exam. Continue home medications. DVT prophylaxis: On Eliquis. Discharge Planning 0840hrs: Likely discharge later today if diarrhea continues to improve. Discussed with RN. 1300hrs: Patient reported no further episodes of diarrhea throughout the day. He wants to go home. He tolerated oral intake. Will discharge. Discharge patient to home Condition on discharge: Improved Heart Healthy Diet as tolerated Ad Renetta activity Rx written: Lomotil prn, Lactinex tid, metoprolol 75mg bid Follow-up with primary care physician Dr. Cortez in 2-3 days Lenora Sarabia PA-C Feb 06, 2017 8:25 am
[2017-02-06] MEDS: MULTIVITAMIN-OPHTHALMIC 1 TAB PO SCH (08:57)
[2017-02-06] MEDS: COLCHICINE 0.6 MG TAB PO SCH ×2 (08:58→13:00)
[2017-02-06] MEDS: CHOLECALCIFEROL (VIT D3) 1000 UNIT TAB PO SCH (08:58)
[2017-02-06] MEDS: SODIUM CHLORIDE 0.9% FLUSH 10 ML FLUSH IV FLUSH SCH (08:58)
[2017-02-06] MEDS: APIXABAN 5 MG TABLET PO SCH (08:58)
[2017-02-06] MEDS: LACTOBACILLUS ACIDOPHILUS TAB PO SCH ×2 (08:58→13:00)
[2017-02-06] MEDS: MULTIVITAMINS/MINERALS THERAPEUTIC TAB PO SCH (08:58)
[2017-02-06] MEDS: METOPROLOL TARTRATE 25 MG TAB PO SCH (09:00)
[2017-02-06] MEDS ORDERED: DIPH2.5T14 PO (09:09)
[2017-02-06] MEDS ORDERED: METO25TA3 PO (09:09)
[2017-02-06] MEDS ORDERED: LACT PO (09:09)
--- NOTE | 2017-02-06 09:11 | HHI.DCPOC ---
Discharge Care Plan Diagnosis: (1) Diarrhea (2) Gastroenteritis Goals to Promote Your Health * To prevent worsening of your condition and complications * To maintain your health at the optimal level Directions to Meet Your Goals Take your medications as prescribed Follow your dietary instruction Follow activity as directed Keep your appointments as scheduled Take your immunizations and boosters as scheduled If your symptoms worsen call your PCP, if no PCP go to Urgent Care Center or Emergency Room Smoking is Dangerous to Your Health. Avoid second hand smoke Call the 24-hour hour crisis hotline for domestic abuse at Lenora Sarabia PA-C Feb 06, 2017 9:11 am
[2017-02-06 12:00] VITALS: BP 110/63; PULSE 100; RESP 18; TEMP 98; O2SAT 94
[2017-02-06 15:00] VITALS: PULSE 101
== END 2017-02-06 18:34 | disposition home or self-care (01) ==
LOC: NEPD 09:22 → NEDA 14:02 → NEPFCDU 16:46
PROVIDERS: ADMIT Family Medicine; ATTEND Family Medicine
DX: K52.9 Noninfective gastroenteritis and colitis, unspecified (principal); R53.1 Weakness; M79.671 Pain in right foot; R61 Generalized hyperhidrosis; E86.0 Dehydration; I95.9 Hypotension, unspecified; I10 Essential (primary) hypertension; I48.91 Unspecified atrial fibrillation; Z79.899 Other long term (current) drug therapy; Z79.01 Long term (current) use of anticoagulants; Z85.46 Personal history of malignant neoplasm of prostate; Z92.3 Personal history of irradiation
CPT/HCPCS: 80048; 80053; 81001; 85025; 87040; 87493; 87506; 96360; 96361; 97161; 99285; G0378; G8987; G8988; J2405; J7030; J3010

== ENCOUNTER 2017-02-11 01:25 | Emergency (ER) | payer MEDICARE ==
[~2017-02-11] VITALS: Ht 177.8 cm; Wt 78.0 kg
[~2017-02-11 01:25] MED LIST changes: +APIX5TAB PO; -ASPI1TAB69 PO; +CENTCHW4 CHEW; -CENTTAB PO; +COLC1TAB15 PO; +DIPH2.5T14 PO; +FLAX1000 PO; -FLAX10006 PO; +LACT PO; +METO25TA3 PO; +OCUVTAB4 PO; -PRESCAP5 PO
[2017-02-11 01:26] VITALS: BP 97/61; PULSE 141; RESP 20; TEMP 98.8; O2SAT 98
[2017-02-11] MEDS ORDERED: DIPH2.5T14 PO (02:09)
[2017-02-11] MEDS ORDERED: COLC1CAP3 PO (02:09)
[2017-02-11 02:24] VITALS: BP_SYST 11; BP_SYST 111; BP_DIAS 61; PULSE 102; RESP 16; O2SAT 98
[2017-02-11] MEDS ORDERED: SODIUM CHLORID 0.9% 500 ML INJ 500 ML IV ONE (02:30)
--- NOTE | 2017-02-11 02:42 | PD ---
HPI Chief Complaint: Complaint Time Seen by Provider: 01:55 Travel History International Travel<30 days: No Contact w/Intl Traveler<30days: No Traveled to known affect area: No History of Present Illness HPI The patient is an 81 year old male who presents to the [facility] emergency department with a history of reportedly having difficulty urinating over the last few days. He reports that he last urinated in the morning yesterday. The patient reports that he was just recently admitted to the hospital related to nausea, vomiting, and diarrhea. He reports that he was discharged home with a prescription for Lomotil. He reports that his other recent new medications over the last 2 months related to recently being diagnosed with atrial fibrillation. The patient was started on Eliquis and metoprolol. Additionally , approximately 2 weeks ago the patient reports that he developed a cramp in his leg and foot which is not unusual for him. He reports that he attempted to stand up and walk the crampout, however the cramp was resistant to releasing in his foot. He reports that eventually it did release and he developed swelling and pain in the foot associated with redness. The patient went to see his primary care physician and was diagnosed with gout. He reports that he was placed sign cultures seen approximately 2 weeks ago. He reports that he had been taking it every 2 hours up until recently when he started to taper it. He reports that he last took one pill yesterday. The patient reports having abdominal pain and distention over his bladder. The patient reports having a burning sensation when he tries to urinate. The patient reports that when he was admitted to the hospital he did get catheterized briefly for a urine sample. On review of systems, the patient denies any recent fevers, cough, congestion, neck pain, chest pain, shortness of breath, abdominal pain, or neurologic symptoms. The patient reports that since being discharged from the hospital he has continued to have diarrhea although it has decreased in frequency is down to 3 times per day. He reports that the nausea and vomiting has resolved. [facility] Past Medical History Narrative Medical The patient's past medical history is significant for atrial fibrillation, history of this gout, prostate cancer status post completion of treatment and 2012, history of lupus that is in remission. Hx Anticoagulant Therapy: Yes (ELIQUIS) Blood Disorders: No Depression: No Heart Rhythm Problems: Yes (A fib) Cancer: Yes (prostate 2012) Cardiovascular Problems: Yes (HTN, AFIB) High Cholesterol: No Chemotherapy: No Chest Pain: No Congestive Heart Failure: No Diabetes: No Endocrine: No Genitourinary: No Hiatal Hernia: No Hypertension: Yes Immune Disorder: Yes (Lupus (in remission)) Musculoskeletal: Yes (Right Foot Gout) Neurologic: No Psychiatric: No Reproductive: Yes (Prostate ca 2011) Respiratory: No Radiation Therapy: Yes (Radiation with prostate cancer ) Thyroid Disease: No Tetanus Vaccination: Unknown Influenza Vaccination: Yes Past Surgical History Narrative Surgical The patient's past surgical history is significant for a cataract surgery, TURP procedure. Eye Surgery: Yes (both eye cataract removed) Genitourinary Surgery: Yes (TURP) Pacemaker: No Other Surgery: Yes Social History Alcohol Use: Yes (occassionaly ) Tobacco Use: No Substance Use: No Allergies-Medications (Allergen,Severity, Reaction): Coded Allergies: Latex (Verified Allergy, Unknown, 02/11/17) causes hives Reported Meds & Prescriptions Reported Meds & Active Scripts Active Diphenoxylate-Atropine 2.5-0.025 Mg Tab 1 Tab PO Q8HR PRN Acidophilus/l-Sporogenes (Lactobacillus Acidophilus) 1 Tab Tab 1 Tab PO TID 14 Days Metoprolol Tartrate 25 Mg Tab 75 Mg PO Q12HR 30 Days Reported Colchicine 0.6 Mg Cap 0.6 Mg PO BID Diphenoxylate-Atropine 2.5-0.025 Mg Tab 1 Tab PO Q8HR PRN Preservision Areds (Multiple Vitamins W/ Minerals) 1 Tab 1 Tab PO DAILY Centrum (Multiple Vitamins W/ Minerals) 1 Chew 1 Tab CHEW DAILY Flaxseed Oil (Flaxseed (Linseed)) 1,000 Mg Cap 1 Cap PO DAILY Colchicine 0.6 Mg Tab 0.6 Mg PO TID Eliquis (Apixaban) 5 Mg Tab 5 Mg PO BID Travatan Z Opth Drops (Travoprost) 0.004 % Soln 1 Drop EACH EYE HS Vitamin D3 (Cholecalciferol) 1,000 Unit Tab 1,000 Units PO DAILY Biotin 10 Mg Tab 1,000 Mcg PO DAILY Review of Systems Except as stated in HPI: all other systems reviewed are Neg General / Constitutional: No: Fever Eyes: No: Visual changes HENT: No: Headaches Cardiovascular: No: Chest Pain or Discomfort Respiratory: No: Shortness of Breath Gastrointestinal: Positive: Diarrhea, No: Abdominal Pain, Changes in Bowel Habits, Indigestion, Loss of Appetite Genitourinary: No: Dysuria Musculoskeletal: No: Pain Skin: No Rash Neurologic: No: Weakness, Focal Abnormalities, Change in Mentation, Slurred Speech, Sensory Disturbance Psychiatric: No: Depression Endocrine: No: Polydipsia Hematologic/Lymphatic: No: Easy Bruising Physical Exam Narrative General: The patient is a well-developed well-nourished male, uncomfortable appearing on arrival due to his urinary retention. Head and Neck exam: Head is normocephalic atraumatic. Eyes: EOMI, pupils are equal round and reactive to light. Nose: Midline septum with pink mucous membranes Mouth: Dentition unremarkable. Moist mucus membranes. Posterior oropharynx is not erythematous. No tonsillar hypertrophy. Uvula midline. Airway patent. Neck: No palpable lymphadenopathy. No nuchal rigidity. No thyromegaly. Cardiovascular: Irregularly irregular with a rate in the low 100s on arrival without murmurs, gallops, or rubs. Lungs: Clear to auscultation bilaterally. No wheezes, rhonchi, or rales. Abdomen: Soft, with suprapubic abdominal distention on palpation, palpable bladder distention with enlargement noted, no other tenderness on palpation of the other quadrants of the abdomen. No guarding, rebound, or rigidity. Normal bowel sounds are audible. No tenderness on palpation of McBurney's point. Negative Gamerco sign. Extremities: No clubbing, cyanosis, or edema. 2+ pulses in all 4 extremities. No calf tenderness on palpation. Back: No spinous process tenderness to palpation. No costovertebral angle tenderness to palpation. Neurologic Exam: Grossly nonfocal. Skin Exam: No rash noted. Intact skin that is warm and dry. Data Data Last Documented VS Vital Signs Date Time Temp Pulse Resp B/P Pulse Ox O2 Delivery O2 Flow Rate FiO2 02/11/17 04:00 91 16 113/66 99 Room Air 02/11/17 01:26 98.8 Orders Urinalysis - C+S If Indicated (02/11/17 02:00) Urinary Catheter Insert/Apply (02/11/17 02:00) Complete Blood Count With Diff (02/11/17 02:18) Comprehensive Metabolic Panel (02/11/17 02:18) Creatine Kinase (Cpk) (02/11/17 02:18) Ckmb (Isoenzyme) Profile (02/11/17 02:18) Troponin I (02/11/17 02:18) Magnesium (Mg) (02/11/17 02:18) Iv Access Insert/Monitor (02/11/17 02:18) Ecg Monitoring (02/11/17 02:18) Oximetry (02/11/17 02:18) Electrocardiogram (02/11/17 02:18) Chest, Single Ap (02/11/17 02:18) Lipase (02/11/17 02:18) Thyroid Stimulating Hormone (02/11/17 02:18) Sodium Chlorid 0.9% 500 Ml Inj (Ns 500 M (02/11/17 02:30) Magnesium Sulfate 1 Gm Premix (Magnesium (02/11/17 04:00) Potassium Chloride (Kcl) (02/11/17 04:00) Ct Thorax/ Chest Wo Iv Contras (02/11/17 03:57) CKMB (02/11/17 02:30) CKMB% (02/11/17 02:30) Labs Laboratory Tests Test 02/11/17 02/11/17 02:25 02:30 Urine Color YELLOW Urine Turbidity CLEAR Urine pH 6.0 Urine Specific [place] 1.008 Urine Protein NEG mg/dL Urine Glucose (UA) NEG mg/dL Urine Ketones NEG mg/dL Urine Occult Blood NEG Urine Nitrite NEG Urine Bilirubin NEG Urine Urobilinogen LESS THAN 2.0 MG/DL Urine Leukocyte Esterase TRACE Urine RBC LESS THAN 1 /hpf Urine WBC 1 /hpf Urine Bacteria RARE /hpf Microscopic Urinalysis Comment CULT NOT INDICATED White Blood Count 6.1 TH/MM3 Red Blood Count 3.86 MIL/MM3 Hemoglobin 11.4 GM/DL Hematocrit 33.8 % Mean Corpuscular Volume 87.6 FL Mean Corpuscular Hemoglobin 29.5 PG Mean Corpuscular Hemoglobin 33.6 % Concent Red Cell Distribution Width 14.1 % Platelet Count 266 TH/MM3 Mean Platelet Volume 8.8 FL Neutrophils (%) (Auto) 71.7 % Lymphocytes (%) (Auto) 11.8 % Monocytes (%) (Auto) 13.9 % Eosinophils (%) (Auto) 2.0 % Basophils (%) (Auto) 0.6 % Neutrophils # (Auto) 4.4 TH/MM3 Lymphocytes # (Auto) 0.7 TH/MM3 Monocytes # (Auto) 0.9 TH/MM3 Eosinophils # (Auto) 0.1 TH/MM3 Basophils # (Auto) 0.0 TH/MM3 CBC Comment AUTO DIFF Differential Total Cells 100 Counted Neutrophils % (Manual) 72 % Band Neutrophils % 1 % Lymphocytes % 12 % Monocytes % 9 % Eosinophils % 4 % Basophils % 1 % Neutrophils # (Manual) 4.5 TH/MM3 Myelocytes 1 % Differential Comment FINAL DIFF MANUAL Atypical Lymphocytes % Platelet Estimate NORMAL Platelet Morphology Comment NORMAL Ovalocytes 1+ Acanthocytes OCC Sodium Level 135 MEQ/L Potassium Level 3.1 MEQ/L Chloride Level 102 MEQ/L Carbon Dioxide Level 22.3 MEQ/L Anion Gap 11 MEQ/L Blood Urea Nitrogen 26 MG/DL Creatinine 1.23 MG/DL Estimat Glomerular Filtration 56 ML/MIN Rate Random Glucose 89 MG/DL Calcium Level 8.3 MG/DL Magnesium Level 1.4 MG/DL Total Bilirubin 0.5 MG/DL Aspartate Amino Transf 47 U/L (AST/SGOT) Alanine Aminotransferase 52 U/L (ALT/SGPT) Alkaline Phosphatase 86 U/L Total Creatine Kinase 229 U/L Creatine Kinase MB 4.1 NG/ML Troponin I 0.03 NG/ML Total Protein 7.1 GM/DL Albumin 2.9 GM/DL Lipase 91 U/L Thyroid Stimulating Hormone 1.340 uIU/ML [facility] Medical Decision Making Medical Screen Exam Complete: Yes Emergency Medical Condition: Yes Medical Record Reviewed: Yes Differential Diagnosis Urinary retention, versus urinary tract infection, versus renal failure Narrative Course During the course of the patients emergency department visit, the patients history, examination, and differential diagnosis were reviewed with the patient. The patient had IV access obtained and blood work sent for analysis. The patient was placed on a board winder with oximetry and blood pressure monitoring. The patient was initially quite tachycardic out in triage with a heart rate in the 140s. An ECG was done on arrival. The patient had a Jefferson catheter placed to gravity. The patient had reportedly 1400 mL of urine out after the catheter was placed. The patient's heart rate came down as he became more comfortable. The patients laboratory studies were reviewed and remarkable for a white count of 6.1, hemoglobin 11.4, platelets 266, neutrophils 71.7, monocytes 13.9, CMP is remarkable for a sodium of 135, potassium 3.1, BUN 26, GFR 56, magnesium 1.4 , calcium 8.3, AST 47, lipase 91, urinalysis is unremarkable. The patient was given magnesium 1 g IV, potassium 40 mEq by mouth 1 for replacement of hypokalemia. The patient will be given a prescription for magnesium oxide and potassium supplement as an outpatient. The patient is additionally days for his morning dose of metoprolol. He will be given 25 mg, 3 tablets per the recommendation of his discharge prescription by mouth prior to discharge. Radiology studies were reviewed and remarkable for a chest x-ray that shows a faint nodular infiltrate versus mass of the right midlung, noncontrast chest CT is recommended, lungs otherwise appear clear. CT scan of the chest reveals multiple bilateral pulmonary nodular opacities most suspicious is in the right lung apex it is recommended by the reading radiologist that area on outpatient PET scan be ordered. I did discuss this with the patient's primary care physician, the doctor covering for him. He reported that he will pass this along to the patient's physician. The patient reported feeling greatly improved after the Jefferson catheter was placed. The patient reports that he is followed by Dr. Ramos for his urologic care. He will call him this morning for a follow-up appointment. Physician Communication Physician Communication I spoke to Dr. Mark Martin, the covering physician for Dr. Cortez, the patient' s primary care physician. I explained the recent history for the patient including the CT scan findings that show an abnormal pulmonary nodule that requires further workup as an outpatient with a PET scan. Dr. Denise explained that he would be in contact with the patient's physician today and that the patient would be receiving a call from the office to set this up. Diagnosis Primary Impression: Multiple lung nodules on CT Additional Impressions: Hypokalemia Hypomagnesemia Urinary retention Referrals: Get Ramos MD 1 day Jacqueline Cortez Jr., MD 1 day Patient Instructions: Jefferson Catheter Placement and Care (ED), General Instructions, Urinary Retention in Men (ED) Additional Instructions: The patient is instructed regarding the importance of close follow-up with Dr. Ramos and Dr. Cortez today. Med/Other Pt SpecificInfo: Prescription(s) given Scripts Potassium Chloride ER (K-Tab)20 Meq Tab20 Meq PO BID 10 Days Ref 0 Prov:Kristin Romero MD 02/11/17 Magnesium Oxide 400 Mg [id number] Mg PO BID 10 Days Ref 0 Prov:Kristin Romero MD 02/11/17 Disposition: 01 DISCHARGE HOME Condition: Stable Kristin Romero MD Feb 11, 2017 02:42
--- NOTE | 2017-02-11 03:16 | RADRPT ---
EXAM DATE/TIME: 02/11/2017 02:17 [facility] COMPARISON: No previous studies available for comparison. INDICATIONS : Palpitations. MEDICAL HISTORY : None. SURGICAL HISTORY : None. ENCOUNTER: Initial ACUITY: 1 day PAIN SCORE: 0/10 LOCATION: Bilateral chest FINDINGS: Faint infiltrate versus mass seen in the right midlung. I don't have any priors. Left lung is clear. No pleural effusion or pneumothorax on either side. Heart size within normal limits. Thoracic aorta is mildly tortuous. CONCLUSION: Faint nodular infiltrate versus mass of the right mid lung. Noncontrast chest CT is recommended. Lung s otherwise appear clear. Wing Alvarez MD on February 11, 2017 at 3:13 Board Certified Radiologist. This report was verified electronically.
[2017-02-11 03:29] LABS: AUTOMATED NEUTROPHIL # 4.4 TH/MM3 (1.8-7.7); BASOPHIL % 0.6 % (0.0-2.0); EOSINOPHIL # 0.1 TH/MM3 (0-0.4); HEMATOCRIT 33.8 % (39.0-51.0); LYMPH % 11.8 % (9.0-44.0); LYMPHOCYTE # 0.7 TH/MM3 (1.0-4.8); MEAN CELL VOLUME 87.6 FL (80.0-100.0); MEAN CORPUSCULAR HEMOGLOBIN 29.5 PG (27.0-34.0); MEAN CORPUSCULAR HGB CONC 33.6 % (32.0-36.0); MONO % 13.9 % (0.0-8.0); NEUT % 71.7 % (16.0-70.0); PLATELET COUNT 266 TH/MM3 (150-450); RED BLOOD COUNT 3.86 MIL/MM3 (4.50-5.90); RED CELL DISTRIBUTION WIDTH 14.1 % (11.6-17.2); WHITE BLOOD COUNT 6.1 TH/MM3 (4.0-11.0)
[2017-02-11 03:35] LABS: HEMO FLAGS AUTO DIFF
[2017-02-11 03:47] LABS: BACTERIA, URINE RARE /hpf; BLOOD, URINE NEG (NEG); COMMENT (UR) CULT NOT INDICATED; CULTURE IF INDICATED CULT NOT INDICATED; GLUCOSE,URINE NEG (NEG); KETONE, URINE NEG (NEG); NITRITE,URINE NEG (NEG); URINE COLOR YELLOW (YELLW/STRAW)
[2017-02-11 03:51] LABS: ANION GAP 11 MEQ/L (5-15); AST (GOT) 47 U/L (15-37); BICARBONATE 22.3 MEQ/L (21.0-32.0); BLOOD UREA NITROGEN 26 MG/DL (7-18); CHLORIDE 102 MEQ/L (98-107); GLOMERULAR FILTRATION RATE 56 ML/MIN (>89); MAGNESIUM 1.4 MG/DL (1.5-2.5); POTASSIUM 3.1 MEQ/L (3.5-5.1); SODIUM (NA) 135 MEQ/L (136-145)
[2017-02-11 04:00] VITALS: BP 113/66; PULSE 91; RESP 16; O2SAT 99
[2017-02-11] MEDS ORDERED: MAGNESIUM SULFATE 1 GM PREMIX 100 ML IV ONE (04:00)
[2017-02-11] MEDS ORDERED: POTASSIUM CHLORIDE 20 MEQ CONTROLLED RELEASE TAB PO ONE (04:00)
[2017-02-11 04:02] LABS: ALKALINE PHOSPHATASE 86 U/L (45-117); ALT (GPT) 52 U/L (12-78); CREATINE KINASE 229 U/L (39-308); TOTAL BILIRUBIN ADULT 0.5 MG/DL (0.2-1.0)
[2017-02-11 04:14] LABS: CKMB 4.1 NG/ML (0.5-3.6)
[2017-02-11 04:21] LABS: BANDS 1 % (0-6); BASOPHILS 1 % (0-2); EOSINOPHILS 4 % (0-4); MYELOCYTES 1 % (0-0); NEUTROPHIL # MANUAL DIFF 4.5 TH/MM3 (1.8-7.7); POLYS (SEG NEUTROPHILS) 72 % (16-70); WBC DIFF SAMPLE 100
[2017-02-11 04:22] LABS: ACANTHOCYTES OCC (NORMAL); OVALOCYTES 1+ (NORMAL); PLATELET ESTIMATE SMEAR NORMAL (NORMAL); PLATELET MORPHOLOGY NORMAL (NORMAL); SCAN/DIFF FINAL DIFF MANUAL
--- NOTE | 2017-02-11 05:15 | RADRPT ---
EXAM DATE/TIME: 02/11/2017 04:44 [facility] COMPARISON: No previous studies available for comparison. INDICATIONS : Evaluate for mass. Abnormal chest x-ray. RADIATION DOSE: 3.47 CTDIvol (mGy) MEDICAL HISTORY : Cardiovascular disease. Hypertension. Carcinoma, prostate. SURGICAL HISTORY : None. ENCOUNTER: Initial ACUITY: 1 day PAIN SCALE: 0/10 LOCATION: chest TECHNIQUE: Volumetric scanning of the chest was performed. Using automated exposure control and adjustment of t he mA and/or kV according to patient size, radiation dose was kept as low as reasonably achievable to obtain optimal diagnostic quality images. DICOM format image data is available electronically for r eview and comparison. Follow-up recommendations for incidentally detected pulmonary nodules are based at a minimum on nodul e size and patient risk factors according to Fleischner Society Guidelines. FINDINGS: Dense parenchymal consolidation versus scar versus mass seen of the right lung apex, measures approxi mately 13 x 18 mm in size. A 13 mm probably benign nodule is seen in the right middle lobe. A 4 mm no dule is seen in the right lower lobe. There is a 7.5 mm probably benign lingular nodule on the left. A 5 mm subpleural nodule is seen in the left lower lobe Otherwise, there is patchy sub-solid/groundgl ass consolidation of both lungs, mainly peripheral and dependent but involves all segments of all lob es. No pleural effusion or pneumothorax. No mediastinal, hilar or axillary lymphadenopathy demonstrated. Heart size normal. There is dominga nary artery calcification noted. Atherosclerosis also seen of the aorta and arch vessels. CONCLUSION: 1. Multiple bilateral pulmonary nodular opacities, the most suspicious of which is of the right lung apex while the others are nonspecific but most likely benign. It would probably be difficult to sampl e the apical nodule via percutaneous needle biopsy. An outpatient PET CT may be helpful. 2. Scattered/patchy areas of mainly groundglass infiltrates of both lungs seen as well. These are als o nonspecific but most likely infectious or inflammatory. Bronchoalveolar cell carcinoma can appear s imilar and CT surveillance is warranted with a noncontrast chest CT in approximately 6 months. 3. Atherosclerosis of the aorta, arch vessels and coronary arteries. Wing Alvarez MD on February 11, 2017 at 5:05 Board Certified Radiologist. This report was verified electronically.
[2017-02-11] MEDS ORDERED: POTA1TAB4 PO (06:09)
[2017-02-11] MEDS ORDERED: MAGN400T2 PO (06:09)
[2017-02-11] MEDS ORDERED: METOPROLOL TARTRATE 25 MG TAB PO ONE (06:15)
--- NOTE | 2017-02-11 10:54 | EKG ---
Date Performed: 02/11/2017 Time Performed: 02:31:27 PTAGE: 81 years EKG: ATRIAL FIBRILLATION WITH RAPID VENTRICULAR RESPONSE MARKED LEFT AXIS DEVIATION MODERATE INT RAVENTRICULAR CONDUCTION DELAY NONSPECIFIC T-WAVE ABNORMALITY ABNORMAL ECG Compared to the PREVIOUS TRACING SR no longer present DOCTOR: Ari Baig Interpretating Date/Time 02/11/2017 10:54:04
== END 2017-02-11 06:40 | disposition home or self-care (01) ==
LOC: NEPE 01:25
DX: R91.8 Other nonspecific abnormal finding of lung field (principal); E87.6 Hypokalemia; E83.42 Hypomagnesemia; R33.9 Retention of urine, unspecified; R19.7 Diarrhea, unspecified; R11.2 Nausea with vomiting, unspecified; M32.9 Systemic lupus erythematosus, unspecified; I10 Essential (primary) hypertension; R94.31 Abnormal electrocardiogram [ECG] [EKG]
CPT/HCPCS: 51702; 71010; 71250; 80053; 81001; 82550; 82552; 83690; 83735; 84443; 84484; 85007; 85027; 93005; 96374; 99285; J3475; J7040

== ENCOUNTER → 2017-03-03 | Outpatient (CLI) | payer MEDICARE ==
[~2017-03-03] MED LIST changes: +COLC1CAP3 PO; +MAGN400T2 PO; +POTA1TAB4 PO
[2017-03-03 10:30] LABS: HDL CHOLESTEROL 44.4 MG/DL (40.0-60.0)
== END ==
LOC: CLAB 08:40
PROVIDERS: ATTEND Internal Medicine Interventional Cardiology
DX: I48.0 Paroxysmal atrial fibrillation (principal); I42.0 Dilated cardiomyopathy; I44.30 Unspecified atrioventricular block; E78.00 Pure hypercholesterolemia, unspecified
CPT/HCPCS: 36415; 80061; 84443; 84450; 84460

== ENCOUNTER → 2017-03-23 | Outpatient (CLI) | payer MEDICARE ==
[~2017-03-23] MED LIST changes: +AMIO200T PO; +LACTCAP8 PO; +METO50TA PO
--- NOTE | 2017-03-26 08:47 | RSPPFT ---
DATE OF PROCEDURE: 03/23/17 COMMENTS: VOLUMES DYNAMIC: FVC and FEV1 normal. STATIC: RV, FRC and TLC normal. FLOWS: FEV1% and FEF 25-75 normal. DIFFUSION; Mildly reduced. FLOW VOLUME LOOP: Normal configuration. IMPRESSION: Essentially normal pulmonary functions with no significant airways obstruction or restriction but there is a mild reduction in diffusion possibly related to prior smoking. No improvement post-bronchodilator.
== END ==
LOC: HRSP 07:52
PROVIDERS: ATTEND Internal Medicine
DX: J44.9 Chronic obstructive pulmonary disease, unspecified (principal)
CPT/HCPCS: 94060; 94620; 94726; 94729

== ENCOUNTER → 2017-03-27 | Outpatient (CLI) | payer MEDICARE ==
[2017-03-27 10:18] LABS: HEMATOCRIT 36.4 % (39.0-51.0); MEAN CELL VOLUME 92.9 FL (80.0-100.0); MEAN CORPUSCULAR HEMOGLOBIN 30.9 PG (27.0-34.0); MEAN CORPUSCULAR HGB CONC 33.2 % (32.0-36.0); PLATELET COUNT 224 TH/MM3 (150-450); RED BLOOD COUNT 3.92 MIL/MM3 (4.50-5.90); RED CELL DISTRIBUTION WIDTH 16.8 % (11.6-17.2); REVIEW FLAG FINAL; WHITE BLOOD COUNT 7.5 TH/MM3 (4.0-11.0)
[2017-03-27 10:26] LABS: APTT (PATIENT) 28.6 SEC (24.3-30.1); PROTHROMBIN TIME - PATIENT 11.3 SEC (9.8-11.6)
[2017-03-27 11:07] LABS: BICARBONATE 28.1 MEQ/L (21.0-32.0); POTASSIUM 4.3 MEQ/L (3.5-5.1)
== END ==
LOC: CPRE 09:20
PROVIDERS: ATTEND Internal Medicine
DX: R91.1 Solitary pulmonary nodule (principal); Z01.812 Encounter for preprocedural laboratory examination; Z79.01 Long term (current) use of anticoagulants
CPT/HCPCS: 36415; 80048; 85027; 85610; 85730

== ENCOUNTER 2017-03-31 10:54 | Day surgery (SDC) | payer MEDICARE ==
[~2017-03-31] VITALS: Ht 180.3 cm; Wt 71.8 kg
[~2017-03-31 10:54] MED LIST changes: -CENTCHW4 CHEW; -COLC1CAP3 PO; -COLC1TAB15 PO; -DIPH2.5T14 PO; -LACT PO; -MAGN400T2 PO; -METO25TA3 PO; -POTA1TAB4 PO
[2017-03-31 11:19] VITALS: BP 106/72; PULSE 101; RESP 18; TEMP 97.8; O2SAT 98
[2017-03-31] MEDS ORDERED: INSULIN HUMAN REGULAR 1,000 UNITS/10 ML VIAL SQ PRN (11:30)
[2017-03-31] MEDS ORDERED: SODIUM CHLORID 0.9% 500 ML IV PRN (11:30)
[2017-03-31] MEDS ORDERED: METOPROLOL TARTRATE 25 MG TAB PO PRN (11:30)
[2017-03-31] MEDS ORDERED: LACTATED RINGER'S 1000 ML IV PRN (11:30)
[2017-03-31] MEDS ORDERED: POVIDONE IODINE 5% (ANTISEPSIS KIT) 4 APPLICATIONS EACH NARE PRN (11:30)
[2017-03-31] MEDS ORDERED: CHLORHEXIDINE GLUCONATE 2 % 1 PACK (2 CLOTHS) TOPICAL PRN (11:30)
[2017-03-31] MEDS ORDERED: SODIUM CHLOR 0.9% 1000 ML IV SCH (12:00)
[2017-03-31] MEDS ORDERED: ONDANSETRON HCL 4 MG/2 ML VIAL IV PUSH ONE (12:00)
[2017-03-31] MEDS ORDERED: PROPOFOL 200 MG/20 ML AMP IV ONE (12:00)
[2017-03-31] MEDS ORDERED: SODIUM CHLOR 0.9% 1000 ML INJ 1,000 ML IV ONE (12:00)
[2017-03-31] MEDS ORDERED: PHENYLEPH/NS 1000 MCG/10 ML SYR IV ONE (12:00)
[2017-03-31] MEDS ORDERED: NEOSTIGMINE 3 MG/3 ML SYR IV ONE (12:00)
[2017-03-31] MEDS ORDERED: RESP: ALBUTEROL CONC 2.5 MG/0.5 ML NEB ONE (12:30)
[2017-03-31] MEDS ORDERED: RESP: LIDOCAINE HCL 4% PF 5 ML NEB ONE (12:30)
--- NOTE | 2017-03-31 13:28 | RADRPT ---
EXAM DATE/TIME: 03/31/2017 12:43 [facility] COMPARISON: CT THORAX W/O CONTRAST, February 11, 2017, 4:44. CHEST SINGLE AP, February 11, 2017, 2:17. INDICATIONS : Pre op navigational bronchoscopy. RADIATION DOSE: 5.85 CTDIvol (mGy) MEDICAL HISTORY : Cardiovascular disease. Carcinoma, prostate. SURGICAL HISTORY : None. ENCOUNTER: Initial ACUITY: 1 day PAIN SCALE: 0/10 LOCATION: chest TECHNIQUE: Volumetric scanning of the chest was performed using inspiration and expiration chris cols. The study is performed using fiduciary markers for virtual bronchoscopy. Using automated expos ure control and adjustment of the mA and/or kV according to patient size, radiation dose was kept as low as reasonably achievable to obtain optimal diagnostic quality images. DICOM format image data i s available electronically for review and comparison. Follow-up recommendations for detected pulmonary nodules are based at a minimum on nodule size and pa tient risk factors according to Fleischner Society Guidelines. FINDINGS: Multiple bilateral pulmonary opacities somewhat nodular most having the appearance of a irspace type disease however in the right upper lobe a few centimeters spiculated solid mass is appre ciated. These are not significantly changed. There is extensive atherosclerotic cardiova scular disease with calcifications in the aorta and great vessels as well as coronary artery calcific ations. CONCLUSION: Stable CT scan chest multiple scattered nodular densities multiple areas of groundgla ss appearance infiltrate. These findings are nonspecific. There is a 2 cm right upper lobe spiculated soft tissue mass density suspicious for carcinoma. Jarad Campbell MD on March 31, 2017 at 13:19 Board Certified Radiologist. This report was verified electronically.
[2017-03-31] MEDS ORDERED: LACTATED RINGER'S 1000 ML INJ 1,000 ML IV ONE (15:44)
[2017-03-31] MEDS ORDERED: DO NOT ADM ANY ANTICOAGULANT DRUGS PRN (16:40)
[2017-03-31] MEDS ORDERED: RESP: ALBUTEROL 2.5 MG/3 ML NEB (PRN) NEB (16:45)
[2017-03-31] MEDS ORDERED: *RESP: ALBUTEROL 2.5 MG/3 ML NEB (PRN) PERIprocedural Use ONLY NEB ONE (16:50)
--- NOTE | 2017-03-31 17:14 | RADRPT ---
EXAM DATE/TIME: 03/31/2017 16:57 [facility] COMPARISON: CT THORAX W/O CONTRAST INSP/EXPIR, NAVIGATION, March 31, 2017, 12:43. CHEST SINGLE AP, February 11 7, 2:17. INDICATIONS : Post biopsy right upper lobe. MEDICAL HISTORY : None. SURGICAL HISTORY : None. ENCOUNTER: Initial ACUITY: 1 day PAIN SCORE: 0/10 LOCATION: Bilateral chest FINDINGS: There is no evidence of of pneumothorax following biopsy. Infiltrate, pleural thickening and medial a pical mass are noted on the right. There is diffuse interstitial prominence throughout the remainder of the right lung and mild fine interstitial prominence on the contralateral left side. No evidence o f layering effusion. Cardiac contours are stable. CONCLUSION: No evidence of pneumothorax. Interstitial prominence, right worse than left. Right apical infiltrate, nodule and pleural thickening Wing Chung MD on March 31, 2017 at 17:09 Board Certified Radiologist. This report was verified electronically.
[2017-03-31 17:15] VITALS: TEMP 97.5
[2017-03-31 17:30] VITALS: BP 115/59; PULSE 92; RESP 16; O2SAT 93
[2017-03-31 18:00] VITALS: BP 114/73; PULSE 100; RESP 16; O2SAT 96
--- NOTE | 2017-03-31 23:53 | MP ---
cc: Alonzo REYES M.D. DATE OF SURGERY 03/31/17 PROCEDURE Bronchoscopy. INDICATION Pulmonary infiltrates, right upper lobe nodular density. With general anesthesia the patient underwent diagnostic bronchoscopy after informed consent was obtained. His Eliquis had been held for 3 days. PROCEDURE Examination of the mid to distal trachea was normal. Examination of the left main stem bronchus, left upper lobe lingula and lower lobe orifices was entirely unremarkable. Examination of the right main stem bronchus, right upper, middle and lower lobes again was entirely unremarkable. The pathology on CT scan was primarily in the right upper lobe. This was the area of the nodular density. Utilizing navigational technology the nodular infiltrate was localized to the apical segment of the right upper lobe. This area was washed and brushed extensively, submitted for cytology and cultures. Again, using navigational technology in the anterolateral region of the right upper lobe again an area of ground glass density was identified and this area was washed and brushed extensively and submitted for culture and cytology. Fluoroscopic guidance was then used to identify the area of infiltrate and ground glass in the right upper lobe and several transbronchial biopsies were obtained from this area and submitted for routine pathology. He did have minimal bleeding, none at the end of the procedure and is transferred to recovery in stable condition. Chest x-ray is pending at this time. SUMMARY In summary, this is a normal endoscopic exam. Multiple specimens were taken from the right upper lobe for culture, cytology and pathology. Alonzo Reyes MD RSW/RICARDO /4:51 PM /11:40 PM
== END 2017-03-31 18:38 | disposition home or self-care (01) ==
LOC: HROP 10:54 → HRIP 10:58 → HROP 18:38
PROVIDERS: ATTEND Internal Medicine
DX: J98.4 Other disorders of lung (principal); R91.8 Other nonspecific abnormal finding of lung field; I48.91 Unspecified atrial fibrillation; I10 Essential (primary) hypertension; H40.9 Unspecified glaucoma; Z85.46 Personal history of malignant neoplasm of prostate; Z85.828 Personal history of other malignant neoplasm of skin; Z87.891 Personal history of nicotine dependence; Z79.01 Long term (current) use of anticoagulants; Z79.899 Other long term (current) drug therapy
CPT/HCPCS: 00520; 31628; 71010; 71250; 76000; 82948; 87015; 87070; 87077; 87102; 87116; 87205; 87206; 88112; 88305; 94640; 94664; J2370; J2405; J2710; J3010; J7030; J7120; J7611; J7613; 88307

== ENCOUNTER → 2017-05-04 | Outpatient (CLI) | payer MEDICARE ==
[2017-05-04 08:18] LABS: MEAN CELL VOLUME 92.7 FL (80.0-100.0); MEAN CORPUSCULAR HEMOGLOBIN 31.4 PG (27.0-34.0); MEAN CORPUSCULAR HGB CONC 33.8 % (32.0-36.0); PLATELET COUNT 217 TH/MM3 (150-450); RED CELL DISTRIBUTION WIDTH 16.3 % (11.6-17.2); REVIEW FLAG FINAL
[2017-05-04 11:01] LABS: BICARBONATE 26.7 MEQ/L (21.0-32.0); POTASSIUM 4.5 MEQ/L (3.5-5.1)
== END ==
LOC: CLAB 07:52
PROVIDERS: ATTEND Internal Medicine Interventional Cardiology
DX: I48.1 Persistent atrial fibrillation (principal)
CPT/HCPCS: 36415; 80048; 85027

== ENCOUNTER 2017-05-11 06:30 | Day surgery (SDC) | payer MEDICARE ==
[2017-05-11] MEDS ORDERED: PROPOFOL 200 MG/20 ML AMP IV ONE (06:31)
--- NOTE | 2017-05-11 12:41 | EKG ---
Date Performed: 05/11/2017 Time Performed: 07:02:14 PTAGE: 81 years EKG: Atrial fibrillation. Left anterior fascicular block IV conduction defect Lateral T wave julius nges are nonspecific Abnormal ECG Compared to prior tracing no significant change PREVIOUS TRACING : 02/11/2017 02.31 DOCTOR: Reza Coello Interpretating Date/Time 05/11/2017 12:35:36
--- NOTE | 2017-05-11 16:17 | EKG ---
Date Performed: 05/11/2017 Time Performed: 08:39:26 PTAGE: 81 years EKG: Sinus bradycardia. Left axis deviation IV conduction defect Compared to previous tracing Si nus rhythm has replaced atrial fibrillation Abnormal ECG PREVIOUS TRACING : 05/11/2017 07.02 DOCTOR: Reza Coello Interpretating Date/Time 05/11/2017 16:15:36
== END 2017-05-11 09:35 | disposition home or self-care (01) ==
LOC: HDOC 06:30 → HDIC 06:31 → HDOC 09:35
PROVIDERS: ATTEND Internal Medicine Interventional Cardiology
DX: I48.92 Unspecified atrial flutter (principal); I48.91 Unspecified atrial fibrillation; I44.4 Left anterior fascicular block
CPT/HCPCS: 92960; 93005

== ENCOUNTER → 2017-07-06 | Outpatient (CLI) | payer MEDICARE ==
[2017-07-06 09:17] LABS: AUTOMATED NEUTROPHIL # 5.3 TH/MM3 (1.8-7.7); BASOPHIL # 0.1 TH/MM3 (0-0.2); EOSINOPHIL # 0.3 TH/MM3 (0-0.4); EOSINOPHIL % 3.4 % (0.0-4.0); HEMATOCRIT 37.1 % (39.0-51.0); LYMPH % 11.9 % (9.0-44.0); LYMPHOCYTE # 0.9 TH/MM3 (1.0-4.8); MEAN CELL VOLUME 92.4 FL (80.0-100.0); MEAN CORPUSCULAR HEMOGLOBIN 31.3 PG (27.0-34.0); MEAN CORPUSCULAR HGB CONC 33.8 % (32.0-36.0); MONO % 12.4 % (0.0-8.0); NEUT % 71.3 % (16.0-70.0); PLATELET COUNT 208 TH/MM3 (150-450); RED BLOOD COUNT 4.02 MIL/MM3 (4.50-5.90); RED CELL DISTRIBUTION WIDTH 14.1 % (11.6-17.2); WHITE BLOOD COUNT 7.4 TH/MM3 (4.0-11.0)
[2017-07-06 09:20] LABS: HEMO FLAGS AUTO DIFF
[2017-07-06 09:43] LABS: WESTERGREN SEDIMENTATION RATE 14 mm/hr (0-20)
[2017-07-06 09:55] LABS: ANION GAP 7 MEQ/L (5-15); AST (GOT) 27 U/L (15-37); BICARBONATE 26.5 MEQ/L (21.0-32.0); BLOOD UREA NITROGEN 15 MG/DL (7-18); CHLORIDE 106 MEQ/L (98-107); GLOMERULAR FILTRATION RATE 68 ML/MIN (>89); GLUCOSE,FASTING 86 MG/DL (74-99); POTASSIUM 4.2 MEQ/L (3.5-5.1); SODIUM (NA) 139 MEQ/L (136-145)
[2017-07-06 09:59] LABS: BANDS 1 % (0-6); BASOPHILS 1 % (0-2); EOSINOPHILS 5 % (0-4); METAMYELOCYTES 3 % (0-1); MYELOCYTES 1 % (0-0); NEUTROPHIL # MANUAL DIFF 5.3 TH/MM3 (1.8-7.7); OVALOCYTES 1+ (NORMAL); PLATELET ESTIMATE SMEAR NORMAL (NORMAL); PLATELET MORPHOLOGY NORMAL (NORMAL); POLYS (SEG NEUTROPHILS) 67 % (16-70); SCAN/DIFF FINAL DIFF MANUAL; WBC DIFF SAMPLE 100
[2017-07-06 10:00] LABS: ACANTHOCYTES OCC (NORMAL)
[2017-07-06 10:01] LABS: ALKALINE PHOSPHATASE 62 U/L (45-117); ALT (GPT) 29 U/L (12-78); TOTAL BILIRUBIN ADULT 0.4 MG/DL (0.2-1.0)
[2017-07-06 14:09] LABS: BLOOD, URINE NEG (NEG); GLUCOSE,URINE NEG (NEG); KETONE, URINE NEG (NEG); NITRITE,URINE NEG (NEG); URINE COLOR YELLOW (YELLW/STRAW)
== END ==
LOC: CLAB 08:04
PROVIDERS: ATTEND Allergy & Immunology
DX: M32.9 Systemic lupus erythematosus, unspecified (principal)
CPT/HCPCS: 36415; 80053; 81001; 85007; 85027; 85652; 86140

== ENCOUNTER → 2017-09-09 | Outpatient (CLI) | payer MEDICARE ==
[2017-09-09 08:06] LABS: AUTOMATED NEUTROPHIL # 5.4 TH/MM3 (1.8-7.7); BASOPHIL # 0.1 TH/MM3 (0-0.2); EOSINOPHIL # 0.3 TH/MM3 (0-0.4); EOSINOPHIL % 3.9 % (0.0-4.0); HEMATOCRIT 35.9 % (39.0-51.0); HEMOGLOBIN 12.4 GM/DL (13.0-17.0); LYMPHOCYTE # 0.8 TH/MM3 (1.0-4.8); MEAN CORPUSCULAR HEMOGLOBIN 32.5 PG (27.0-34.0); MEAN CORPUSCULAR HGB CONC 34.6 % (32.0-36.0); MEAN PLATELET VOLUME 7.4 FL (7.0-11.0); MONO % 12.7 % (0.0-8.0); NEUT % 71.4 % (16.0-70.0); PLATELET COUNT 240 TH/MM3 (150-450); RED BLOOD COUNT 3.82 MIL/MM3 (4.50-5.90); RED CELL DISTRIBUTION WIDTH 13.9 % (11.6-17.2); WHITE BLOOD COUNT 7.6 TH/MM3 (4.0-11.0)
[2017-09-09 08:31] LABS: ALBUMIN 3.5 GM/DL (3.4-5.0); BICARBONATE 27.8 MEQ/L (21.0-32.0); BLOOD UREA NITROGEN 22 MG/DL (7-18); CALCIUM 9.1 MG/DL (8.5-10.1); CHLORIDE 106 MEQ/L (98-107); CREATININE 1.18 MG/DL (0.60-1.30); GLOMERULAR FILTRATION RATE 59 ML/MIN (>89); GLUCOSE,FASTING 84 MG/DL (74-99); SODIUM (NA) 139 MEQ/L (136-145)
[2017-09-09 08:32] LABS: ALT (GPT) 26 U/L (12-78); AST (GOT) 27 U/L (15-37); C-REACTIVE PROTEIN LESS THAN 0.29 MG/DL (0.00-0.30)
[2017-09-09 08:34] LABS: ALKALINE PHOSPHATASE 65 U/L (45-117); TOTAL BILIRUBIN ADULT 0.5 MG/DL (0.2-1.0); TOTAL PROTEIN 7.2 GM/DL (6.4-8.2)
[2017-09-09 08:49] LABS: WESTERGREN SEDIMENTATION RATE 31 mm/hr (0-20)
[2017-09-09 09:32] LABS: BANDS 12 % (0-6); LYMPHOCYTES 10 % (9-44); MONOCYTES 6 % (0-8); MYELOCYTES 1 % (0-0); NEUTROPHIL # MANUAL DIFF 5.9 TH/MM3 (1.8-7.7); POLYS (SEG NEUTROPHILS) 65 % (16-70)
[2017-09-09 09:34] LABS: OVALOCYTES 1+ (NORMAL)
[2017-09-09 14:08] LABS: ANA SCREEN POS (NEG)
[2017-09-11 17:40] LABS: ANA PATTERN DIFFUSE
== END ==
LOC: CLAB 07:35
PROVIDERS: ATTEND Internal Medicine Interventional Cardiology
DX: I48.1 Persistent atrial fibrillation (principal); M32.8 Other forms of systemic lupus erythematosus; I42.0 Dilated cardiomyopathy; I44.4 Left anterior fascicular block; R79.89 Other specified abnormal findings of blood chemistry
CPT/HCPCS: 36415; 80053; 84443; 85007; 85027; 85652; 86038; 86039; 86140

== ENCOUNTER → 2017-12-04 | Outpatient (CLI) | payer MEDICARE ==
[2017-12-04 08:07] LABS: HEMOGLOBIN 12.4 GM/DL (13.0-17.0); MEAN CELL VOLUME 93.2 FL (80.0-100.0); MEAN CORPUSCULAR HEMOGLOBIN 31.3 PG (27.0-34.0); MEAN CORPUSCULAR HGB CONC 33.6 % (32.0-36.0); MEAN PLATELET VOLUME 7.8 FL (7.0-11.0); PLATELET COUNT 243 TH/MM3 (150-450); RED BLOOD COUNT 3.97 MIL/MM3 (4.50-5.90); RED CELL DISTRIBUTION WIDTH 13.1 % (11.6-17.2); WHITE BLOOD COUNT 6.6 TH/MM3 (4.0-11.0)
[2017-12-04 08:36] LABS: ALBUMIN 3.4 GM/DL (3.4-5.0); ALT (GPT) 27 U/L (12-78); AST (GOT) 36 U/L (15-37); BICARBONATE 26.7 MEQ/L (21.0-32.0); BLOOD UREA NITROGEN 18 MG/DL (7-18); CALCIUM 8.5 MG/DL (8.5-10.1); CHLORIDE 107 MEQ/L (98-107); CHOLESTEROL 158 MG/DL (120-200); CREATININE 1.13 MG/DL (0.60-1.30); GLOMERULAR FILTRATION RATE 62 ML/MIN (>89); GLUCOSE,FASTING 86 MG/DL (74-99); SODIUM (NA) 142 MEQ/L (136-145); TRIGLYCERIDES 40 MG/DL (42-150)
[2017-12-04 08:44] LABS: ALKALINE PHOSPHATASE 55 U/L (45-117); CHOLESTEROL/ HDL RATIO 2.85 RATIO; HDL CHOLESTEROL 55.3 MG/DL (40.0-60.0); LDL CHOLESTEROL 95 MG/DL (0-99); TOTAL BILIRUBIN ADULT 0.3 MG/DL (0.2-1.0)
== END ==
LOC: CLAB 07:21
PROVIDERS: ATTEND Family Medicine
DX: L93.0 Discoid lupus erythematosus (principal); E78.5 Hyperlipidemia, unspecified; C61 Malignant neoplasm of prostate
CPT/HCPCS: 36415; 80053; 80061; 84443; 85027